=== PATIENT | female | born 1985 | race Caucasian/White ===

== ENCOUNTER → 2017-01-05 | Outpatient (CLI) | payer OTHER ==
[~2017-01-05] MED LIST: ADVIN50/60 INH; ALBU1.257 NEB; DIPH1TAB PO; EPP3/2 IM; MONT1TAB3 PO; OMAL150S INJ; PRLSR20 PO; SULF800T23 PO; VNTHFA/IN INH
[2017-01-09 00:48] LABS: CHLAMYDIA TRACH RNA*** NOT DETECTED (NOT DETECTED); GC (NEIS GONORRHOEAE)RNA** NOT DETECTED (NOT DETECTED)
== END | disposition home or self-care (01) ==
LOC: C.LABSPEC 17:02
PROVIDERS: ATTEND Obstetrics & Gynecology
DX: Z01.419 Encounter for gynecological examination (general) (routine) without abnormal findings (principal)

== ENCOUNTER → 2017-01-05 | Outpatient (CLI) | payer OTHER | END | disposition home or self-care (01) | LOC: C.PAPS 10:42 | PROVIDERS: ATTEND Obstetrics & Gynecology | DX: Z12.4 Encounter for screening for malignant neoplasm of cervix (principal) ==

== ENCOUNTER 2017-02-22 23:30 | Emergency (ER) | payer OTHER ==
[~2017-02-22] VITALS: Ht 170.2 cm; Wt 100.4 kg
[2017-02-22 23:40] VITALS: TEMP 36.8; Ht 170.2 cm; Wt 100.4 kg
[2017-02-23] MEDS ORDERED: ALBU1.257 NEB (00:15)
[2017-02-23] MEDS ORDERED: VNTHFA/IN INH (00:15)
[2017-02-23] MEDS ORDERED: EPP3/2 IM (00:15)
[2017-02-23] MEDS ORDERED: MONT1TAB3 PO (00:16)
[2017-02-23] MEDS ORDERED: DIPH1TAB PO (00:16)
[2017-02-23] MEDS ORDERED: ADVIN50/60 INH (00:16)
[2017-02-23] MEDS ORDERED: PRLSR20 PO (00:16)
[2017-02-23 00:33] LABS: BASO % 0.4 %; BASO ABS # 0.04 K/uL (0-0.2); COMPLETE YES; EOS % 4.5 %; HEMATOCRIT 43.1 % (37-47); IG% 0.3 %; LYMPH % 31.2 %; LYMPH ABS # 2.82 K/uL (1.2-3.4); MEAN CELL VOLUME 81.9 fL (80-100); MEAN CORPUSCULAR HEMOGLOBIN 28.9 pg (25-34); MEAN CORPUSCULAR HGB CONC 35.3 g/dl (32-36); MEAN PLATELET VOLUME 9.3 fL (7.4-10.4); MONO % 8.4 %; NEUT % 55.2 %; PLATELET COUNT 239 K/uL (130-400); RED BLOOD COUNT 5.26 M/uL (4.2-5.4); WHITE BLOOD COUNT 9.03 K/uL (4.8-10.8)
[2017-02-23 00:50] LABS: MANUAL MICROSCOPIC REQUIRED? NO; REVIEW REQ? YES; URINE APPEARANCE CLOUDY (CLEAR); URINE BILIRUBIN NEG (NEG); URINE COLOR YELLOW; URINE EPITHELIAL CELL AUTO >30 /lpf (0-5); URINE NITRITE NEG (NEG); URINE PH 5.5 (4.5-7.5); URINE SPECIFIC GRAVITY 1.028 (1.000-1.030); UROBILINOGEN NEG (NEG); ZZUR CULT IF INDIC CLEAN CATCH YES
[2017-02-23 00:53] LABS: BUN/CREATININE RATIO 19.2 (10-20); CALCIUM 9.2 mg/dl (8.5-10.1); CREATININE 0.85 mg/dl (0.60-1.20); POTASSIUM 3.6 mmol/L (3.5-5.1)
[2017-02-23 00:56] LABS: ALB/GLOB RATIO 1.2 (0.9-2)
[2017-02-23] MEDS ORDERED: KETOROLAC TROMETHAMINE 30 MG/ML VIAL IV STA (02:05)
[2017-02-23 04:57] VITALS: BP 141/69; PULSE 83; O2SAT 96
[2017-02-23] MEDS ORDERED: SULF800T23 PO (04:57)
[2017-02-23] MEDS ORDERED: SEPTRA DS HOME PACK 1 EA VIAL PO ONE (05:00)
--- NOTE | 2017-02-23 06:42 | DIAGNOSTIC IMAGING REPORT ---
(CHEST FOR PE) ANGIO WITH CT DOSE: 581.96 mGycm HISTORY: Chest pain dyspnea TECHNIQUE: Multiaxial CT images of the chest were performed following the intravenous administration of contrast to evaluate the pulmonary arteries. Maximal intensity projection images were also obtained. A dose lowering technique was utilized adhering to the principles of ALARA. COMPARISON STUDY: None. FINDINGS: There is a normal caliber thoracic aorta with no evidence for dissection. There is no evidence for pulmonary embolus. No pleural effusions. No pneumothorax. The liver and spleen are unremarkable. No mediastinal or hilar lymphadenopathy. The central airways are patent. The lungs are clear. IMPRESSION: No evidence for pulmonary embolus. The above report was generated using voice recognition software. It may contain grammatical, syntax or spelling errors. Electronically signed by: Prem Arnold M.D. 02/23/2017 6:41 AM Dictated Date/Time: 02/23/2017 6:39 AM
--- NOTE | 2017-02-23 06:49 | DIAGNOSTIC IMAGING REPORT ---
BILIARY ULTRASOUND CLINICAL HISTORY: RUQ abd pain COMPARISON STUDY: No previous studies for comparison. FINDINGS: The pancreas is nonvisualized. The liver is of increased echogenicity. No focal masses are visualized. The gallbladder appears sonographically normal. There is no ductal dilatation. The common bile duct measured 4 mm. There is no right-sided hydronephrosis. IMPRESSION: Ultrasonographically normal gallbladder. No evidence of ductal dilatation. Nondiagnostic evaluation of the pancreas. Electronically signed by: Sherman Bullock M.D. 02/23/2017 6:48 AM Dictated Date/Time: 02/23/2017 6:47 AM
--- NOTE | 2017-02-23 21:53 | EMERGENCY ROOM VISIT NOTE ---
History First contact with patient: 23:59 Chief Complaint: ABDOMINAL PAIN Stated Complaint: PAIN RLQ-SYL STABBIN PAIN Nursing Triage Summary: RUQ abdominal pain that radiates into flank that started Sunday. Denies nausea and vomiting. History of Present Illness The patient is a 31 year old female who presents to the Emergency Room with complaints of right upper quadrant abdominal pain that is radiating into her right side and back. The patient states the discomfort started about 2 days ago and is sharp in nature. It does not radiate to her groin or into her chest or upper back. She has not taken anything [id number] for her symptoms. She is without chest pain, chest tightness, shortness of breath, abdominal pain , or vaginal complaints. The patient is employed here at the facility and has not had symptoms like this in the past. She does not take blood thinners or have a history of cardiopulmonary disease. No past history of DVT or PE. The patient does not recall injury or trauma. Certain positions do worsen her discomfort. Food does not appear to change her discomfort. The patient rates her overall discomfort a 7/10. Review of Systems More than 10 systems were reviewed and otherwise negative with the exception of history of present illness. Past Medical/Surgical History No chronic medical disease Family History No pertinent family history Social History Smoking Status: Never Smoker Occupation Status: employed Current/Historical Medications Scheduled Fluticasone Prop/Salmeterol (Advair Diskus 500/50 60 Dose), 1 PUFF INH BID Montelukast Sodium (Singulair), 10 MG PO DAILY Omalizumab (Xolair), 150 MG INJ [id number] Omeprazole (Prilosec), 20 MG PO DAILY Sulfa/Trimethoprim (Bactrim Ds 800MG/160MG), 1 TAB PO BID Scheduled PRN Albuterol Hfa (Ventolin Hfa), 2 PUFFS INH Q6H PRN for SOB/Wheezing Albuterol Sulfate (Albuterol Sulfate), 1 VIAL NEB Q6 PRN for SOB/Wheezing Diphenhydramine Hcl (Benadryl Allergy), 25-50 MG PO UD PRN for ALLERGIC REACTION Epinephrine (Epipen), 0.3 MG IM UD PRN for ALLERGIC REACTION Physical Exam Vital Signs Date Time Temp Pulse Resp B/P (MAP) Pulse Ox O2 Delivery O2 Flow Rate FiO2 02/23/17 04:57 83 18 141/69 96 Room Air 02/23/17 03:05 71 18 120/71 98 Room Air 02/23/17 01:21 85 18 133/86 95 Room Air 02/22/17 23:40 36.8 95 20 137/94 100 Room Air Pain Rating (0-10): 1.0 Physical Exam VITALS: Vitals are noted on the nurse's note and reviewed by myself. Vital signs stable. GENERAL: Well-developed, well-nourished, white female, who is in no acute distress and resting comfortably. Patient is cooperative with the examination. NECK: Supple without nuchal rigidity. No lymphadenopathy. No thyromegaly. Cervical spine is nontender. HEART: Regular rate and rhythm without murmurs gallops or rubs. LUNGS: Clear to auscultation bilaterally without wheezes, rales or rhonchi. No retractions or accessory muscle use. ABDOMEN: Positive normal bowel sounds x 4. Soft with positive right upper quadrant tenderness anteriorly. Additionally there is some right lateral chest wall reproducible tenderness along the inferior right-sided ribs. No CVA tenderness. No lower abdominal tenderness. MUSCULOSKELETAL: No muscle atrophy, erythema, or edema noted. Full range of motion without joint tenderness in all extremities. Medical Decision & Procedures ER Provider Diagnostic Interpretation: BILIARY ULTRASOUND CLINICAL HISTORY: RUQ abd pain COMPARISON STUDY: No previous studies for comparison. FINDINGS: The pancreas is nonvisualized. The liver is of increased echogenicity. No focal masses are visualized. The gallbladder appears sonographically normal. There is no ductal dilatation. The common bile duct measured 4 mm. There is no right-sided hydronephrosis. IMPRESSION: Ultrasonographically normal gallbladder. No evidence of ductal dilatation. Nondiagnostic evaluation of the pancreas. (CHEST FOR PE) ANGIO WITH CT DOSE: 581.96 mGycm HISTORY: Chest pain dyspnea TECHNIQUE: Multiaxial CT images of the chest were performed following the intravenous administration of contrast to evaluate the pulmonary arteries. Maximal intensity projection images were also obtained. A dose lowering technique was utilized adhering to the principles of ALARA. COMPARISON STUDY: None. FINDINGS: There is a normal caliber thoracic aorta with no evidence for dissection. There is no evidence for pulmonary embolus. No pleural effusions. No pneumothorax. The liver and spleen are unremarkable. No mediastinal or hilar lymphadenopathy. The central airways are patent. The lungs are clear. IMPRESSION: No evidence for pulmonary embolus. Laboratory Results 02/23/17 00:15 Red Blood Count 5.26, Mean Corpuscular Volume 81.9, Mean Corpuscular Hemoglobin 28.9, Mean Corpuscular Hemoglobin Concent 35.3, Mean Platelet Volume 9.3, Neutrophils (%) (Auto) 55.2, Lymphocytes (%) (Auto) 31.2, Monocytes (%) (Auto) 8.4, Eosinophils (%) (Auto) 4.5, Basophils (%) (Auto) 0.4, Neutrophils # (Auto) 4.97, Lymphocytes # (Auto) 2.82, Monocytes # (Auto) 0.76, Eosinophils # (Auto) 0.41, Basophils # (Auto) 0.04 02/23/17 00:15 Test 02/23/17 00:05 02/23/17 00:15 Urine Color YELLOW Urine Appearance CLOUDY (CLEAR) Urine pH 5.5 (4.5-7.5) Urine Specific [place] 1.028 (1.000-1.030) Urine Protein NEG (NEG) Urine Glucose (UA) NEG (NEG) Urine Ketones NEG (NEG) Urine Occult Blood NEG (NEG) Urine Nitrite NEG (NEG) Urine Bilirubin NEG (NEG) Urine Urobilinogen NEG (NEG) Urine Leukocyte Esterase MODERATE (NEG) Urine WBC (Auto) >30 /hpf (0-5) Urine RBC (Auto) 0-4 /hpf (0-4) Urine Hyaline Casts (Auto) 1-5 /lpf (0-5) Urine Epithelial Cells (Auto) >30 /lpf (0-5) Urine Bacteria (Auto) 2+ (NEG) Urine Pathogenic Casts /lpf (0) Urine Test NEG (NEG) White Blood Count 9.03 K/uL (4.8-10.8) Red Blood Count 5.26 M/uL (4.2-5.4) Hemoglobin 15.2 g/dL (12.0-16.0) Hematocrit 43.1 % (37-47) Mean Corpuscular Volume 81.9 fL (80-100) Mean Corpuscular Hemoglobin 28.9 pg (25-34) Mean Corpuscular Hemoglobin Concent 35.3 g/dl (32-36) Platelet Count 239 K/uL (130-400) Mean Platelet Volume 9.3 fL (7.4-10.4) Neutrophils (%) (Auto) 55.2 % Lymphocytes (%) (Auto) 31.2 % Monocytes (%) (Auto) 8.4 % Eosinophils (%) (Auto) 4.5 % Basophils (%) (Auto) 0.4 % Neutrophils # (Auto) 4.97 K/uL (1.4-6.5) Lymphocytes # (Auto) 2.82 K/uL (1.2-3.4) Monocytes # (Auto) 0.76 K/uL (0.11-0.59) Eosinophils # (Auto) 0.41 K/uL (0-0.5) Basophils # (Auto) 0.04 K/uL (0-0.2) RDW Standard Deviation 39.3 fL (36.4-46.3) RDW Coefficient of Variation 13.0 % (11.5-14.5) Immature Granulocyte % (Auto) 0.3 % Immature Granulocyte # (Auto) 0.03 K/uL (0.00-0.02) Anion Gap 6.0 mmol/L (3-11) Est Creatinine Clear Calc Drug Dose 118.9 ml/min Estimated GFR () 107.3 Estimated GFR (Non- 92.6 BUN/Creatinine Ratio 19.2 (10-20) Calcium Level 9.2 mg/dl (8.5-10.1) Total Bilirubin 0.4 mg/dl (0.2-1) Aspartate Amino Transf (AST/SGOT) 18 U/L (15-37) Alanine Aminotransferase (ALT/SGPT) 39 U/L (12-78) Alkaline Phosphatase 78 U/L (45-117) Total Protein 7.6 gm/dl (6.4-8.2) Albumin 4.2 gm/dl (3.4-5.0) Globulin 3.4 gm/dl (2.5-4.0) Albumin/Globulin Ratio 1.2 (0.9-2) Lipase 184 U/L (73-393) Medications Administered Medications (Trade) Dose Ordered Sig/Jhonny Route Start Time Stop Time Status Last Admin Dose Admin Ketorolac Tromethamine (Toradol Inj) 30 mg NOW STAT IV 02/23/17 02:05 02/23/17 02:06 DC 8/18/17 02:10 30 MG Trimethoprim/ Sulfamethoxazole (Sulfameth/ Trimeth Ds 800/ 160MG Home Pack) [address] [facility]CE PO 02/23/17 05:00 02/23/17 05:01 DC 02/23/17 05:03 1 HOMEPACK ED Course Physical exam and history were performed. Nursing notes, EMR, and Medication List were personally reviewed. Patient appears to have vague right upper quadrant versus right sided flank pain versus central chest wall pain. On exam the patient does have some right upper quadrant and right chest wall pain that is reproducible. The patient does not appear toxic. IV access was established and labs were obtained. She was hydrated and medicated as above. I initially started with ultrasound and urinalysis. The patient's blood work is as above and was reviewed. She does not have a significantly elevated white blood cell count, gross anemia, bandemia, or significant electrolyte imbalance. Lipase and transaminases are nondiagnostic. Urinalysis is highly suggestive of infection with culture pending. Ultrasound of the right upper quadrant did not show acute findings. On reevaluation the patient continued to have discomfort, however it appears to be worse along the right-sided lower chest wall more so than any other location. I discussed options of care with the patient and elected to perform a CT scan of the chest as PE was a concern. CT of the chest did not show acute findings. Overall the patient had significant improvement after the IV Toradol. Her symptoms could certainly have a pleuritic nature to them, however she does have a urine consistent with infection. I suspect that she may have an early pyelonephritis and will give her a course of Bactrim. The patient was asked to follow with her primary care physician in the next few days for recheck. She is given a note for work and otherwise invited back to the ER with any new, worsening, or concerning symptoms. The chart was completed utilizing [employer] Speech Voice Recognition Software. Grammatical errors, random word insertions, pronoun errors, and incomplete sentences are an occasional consequence of this system due to software limitations, ambient noise, and hardware issues. Any formal questions or concerns about the content, text, or information contained within the body of this dictation should be directly addressed to the provider for clarification. . Medical Decision Differential diagnosis: Etiologies such as appendicitis, diverticulitis, PUD, biliary pathology, UTI, pancreatitis, obstruction, mesenteric ischemia, aortic pathology, infections, inflammatory bowel disease, renal colic, as well as others were entertained. Medication Reconcilliation Current Medication List: was personally reviewed by me Blood Pressure Screening Blood pressure disposition: Elevated BP felt to be situational Impression Primary Impression: Pyelonephritis Departure Information Dispostion Home / Self-Care Condition GOOD Prescriptions Sulfa/Trimethoprim (Bactrim Ds 800MG/160MG) Tab 1 TAB PO BID for 10 Days, #20 TAB Prov: Jose Alex PA-C 02/23/17 Forms HOME CARE DOCUMENTATION FORM, Work Instructions, Additional Instructions: Patient was seen and evaluated in the emergency department today fo medical care. Return to work on 02/24/2017. Please excuse. IMPORTANT VISIT INFORMATION Patient Instructions My [facility] Additional Instructions You were seen and evaluated today on an emergency basis only. This is not a substitute for, or an effort to provide, complete comprehensive medical care. It is not possible to recognize and treat all injuries or illnesses in a single emergency department visit. For this reason it is recommended that you followup with your primary care physician in the next 2-3 days for recheck of your condition. Trimethoprim-Sulfamethoxazole(Bactrim DS): Take one pill twice daily for 10 days for your kidney/urine infection. All antibiotics can cause diarrhea. If this occurs and you feel worse or it does not resolve in 1-2 days follow up with your doctor or return to the Emergency Department as this could be signs of serious underlying problems. Any medication can cause an allergic reaction, stop the pills immediately and return to the ER for rash, hives, breathing difficulties, or swelling. Drink clear fluids and remain well hydrated You are welcome to return to the emergency department anytime with new, worsening, or concerning symptoms. Work Instructions Additional Work Instructions: Patient was seen and evaluated in the emergency department today for medical care. Return to work on 02/24/2017. Please excuse.
[2017-04-20] MEDS ORDERED: OMAL150S INJ (00:19)
== END 2017-02-23 05:04 | disposition home or self-care (01) ==
LOC: C.EDB 23:31
DX: N12 Tubulo-interstitial nephritis, not specified as acute or chronic (principal); Z79.899 Other long term (current) drug therapy

== ENCOUNTER 2017-04-20 18:17 | Emergency (ER) | payer OTHER ==
[~2017-04-20] VITALS: Ht 170.2 cm; Wt 104.0 kg
[~2017-04-20 18:17] MED LIST changes: -SULF800T23 PO
[2017-04-20 18:24] VITALS: BP 133/84; PULSE 100; TEMP 37; O2SAT 98; Ht 170.2 cm; Wt 104.0 kg
[2017-04-20] MEDS ORDERED: RANI150T3 PO (18:37)
--- NOTE | 2017-04-20 19:04 | EMERGENCY ROOM VISIT NOTE ---
ED Visit Note First contact with patient: 18:28 CHIEF COMPLAINT: Needlestick HISTORY OF PRESENT ILLNESS: This 32-year-old, right-hand dominant, female patient presents to the emergency department complaining of a needle stick injury to her left index finger. The injury occurred approximately 2 hours prior to arrival. 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 She states she reached down to pear picker the dirty needle and it stuck through her glove and caused a very small puncture wound of the left index finger. The patient states Dr. Salmon is aware of the injury and is a dressing having the source patient tested and consented for HIV testing. The patient did immediately scrubbed and cleaned the wound. She denies any residual bleeding or drainage from the wound. The patient denies any pain. The patient does consent to baseline HIV testing. REVIEW OF SYSTEMS: A 6 system review of systems was performed with positives and pertinent negatives listed in the history of present illness. All other systems were reviewed and are negative. ALLERGIES: Please see list. MEDICATIONS: Please see list. I did personally review the patient's medication list with her at bedside. PMH: Asthma, GERD SOCIAL HISTORY: The patient lives locally with family. She denies drug, alcohol , tobacco use. PHYSICAL EXAM: VITALS: Vitals are noted on the nurse's note and reviewed by myself. Vital signs stable. GENERAL: This is a 32-year-old white female, in no acute distress, nondiaphoretic, well-developed well-nourished. SKIN: There is a very small, superficial puncture wound of the left index finger. There is no active bleeding at this time. The wound does not appear to have any drainage. There is no erythema or edema of the digit. Capillary refill less than 2 seconds. The patient does have full sensation and strength 5 /5 of the digit. EMERGENCY DEPARTMENT COURSE: She was seen and evaluated as above. I did call and leave a message with occupational health regarding the patient and incident. HIV testing consent obtained. All other place health paperwork was completed. Labs were drawn and discharge instructions reviewed. The patient was discharged home in good condition. DIFFERENTIAL DIAGNOSIS: Needlestick, HIV, hepatitis C, hepatitis B, puncture wound, workman's comp injury, and others DIAGNOSIS: Superficial needle stick of the left index finger Current/Historical Medications Scheduled Fluticasone Prop/Salmeterol (Advair Diskus 500/50 60 Dose), 1 PUFF INH BID Montelukast Sodium (Singulair), 10 MG PO DAILY Omalizumab (Xolair), 450 MG INJ [id number] Ranitidine Hcl (Zantac), 150 MG PO BID Scheduled PRN Albuterol Hfa (Ventolin Hfa), 2 PUFFS INH Q6H PRN for SOB/Wheezing Albuterol Sulfate (Albuterol Sulfate), 1 VIAL NEB Q6 PRN for SOB/Wheezing Diphenhydramine Hcl (Benadryl Allergy), 25-50 MG PO UD PRN for ALLERGIC REACTION Epinephrine (Epipen), 0.3 MG IM UD PRN for ALLERGIC REACTION Allergies Coded Allergies: Chicken Flavor (Verified Allergy, Severe, ANAPHYLAXIS, 02/23/17) Chicken Meat (Verified Allergy, Severe, ANAPHYLAXIS, 02/23/17) Chicken Skin (Verified Allergy, Severe, ANAPHYLAXIS, 02/23/17) Egg (Verified Allergy, Severe, ANAPHYLAXIS, 02/23/17) Latex1 -Allergic Contact Dermititis (Verified Allergy, Severe, RASH, ) Shellfish (Verified Allergy, Severe, GI SYMPTOMS, 02/23/17) Dust (Verified Allergy, Intermediate, SHORTNESS OF BREATH, 02/23/17) Molds and Smuts (Verified Allergy, Intermediate, SHORTNESS OF BREATH, 02/23) NUTS (Verified Allergy, Intermediate, GI SYMPTOMS, 02/23/17) Onion (Verified Allergy, Intermediate, GI SYMPTOMS, 02/23/17) Povidone Iodine (Verified Allergy, Intermediate, RASH, 02/23/17) Uncoded Allergies: VINYL (Allergy, Severe, RASH, 02/23/17) TURKEY (Allergy, Intermediate, GI SYMPTOMS, 02/23/17) Vital Signs Date Time Temp Pulse Resp B/P (MAP) Pulse Ox O2 Delivery O2 Flow Rate FiO2 04/20/17 18:24 37.0 100 18 133/84 98 Room Air Departure Information Impression Primary Impression: Needle stick injury of finger of left hand Dispostion Home / Self-Care Condition GOOD Referrals Paula Bhatia MD (PCP) Patient Instructions ED Wound Puncture General, [facility] Additional Instructions He was seen in the emergency department today for a needle stick injury. This was considered significant and labs were drawn. Please follow up with employee health for ongoing testing and follow-up regarding the injury. Proper wound care is essential for adequate wound healing and infection prevention. You can shower and clean the wound with soap and water. Do not scour over the wound, pat dry with a towel. Do not submerse the wound (i.e. bathe or dish wash) until the wound has fully healed. You can use an antibiotic ointment with a dressing over the wound for the next 3-4 days. After this time you may leave the wound dry and open to the air. Return to the emergency Department for any redness, swelling, puslike drainage, or other concerning symptoms. Follow-up with employee health on Sunday. Problem Qualifiers Primary Impression: Needle stick injury of finger of left hand Encounter type: initial encounter Qualified Codes: S61.239A - Puncture wound without foreign body of unspecified finger without damage to nail, initial encounter; W27.3XXA - Contact with needle (sewing), initial encounter
== END 2017-04-20 19:17 | disposition home or self-care (01) ==
LOC: C.EDB 18:19 → C.EDD 19:17
DX: T14.8XXA Other injury of unspecified body region, initial encounter (principal); W46.1XXA Contact with contaminated hypodermic needle, initial encounter; J45.909 Unspecified asthma, uncomplicated; K21.9 Gastro-esophageal reflux disease without esophagitis

== ENCOUNTER 2018-02-09 18:58 | Emergency (ER) | payer OTHER ==
[~2018-02-09] VITALS: Ht 170.2 cm; Wt 105.6 kg
[~2018-02-09 18:58] MED LIST changes: -DIPH1TAB PO; +DIPH1TAB87 PO; -PRLSR20 PO; +RANI150T3 PO
[2018-02-09 19:01] VITALS: TEMP 36.7; Ht 170.2 cm; Wt 105.6 kg
[2018-02-09] MEDS ORDERED: KETOROLAC TROMETHAMINE 60 MG/2 ML VIAL IM STA (19:15)
[2018-02-09] MEDS ORDERED: ALBUT/IPRATROP 3MG/0.5MG NEB 3 ML VIAL INH STA (19:15)
[2018-02-09] MEDS ORDERED: TIOT1AER2 INH (19:28)
[2018-02-09 19:55] VITALS: BP 155/106; PULSE 112; O2SAT 95
[2018-02-09] MEDS ORDERED: CYCL10TA6 PO (19:58)
--- NOTE | 2018-02-09 19:59 | DIAGNOSTIC IMAGING REPORT ---
TWO VIEW CHEST CLINICAL HISTORY: Dyspnea. FINDINGS: PA and lateral chest radiographs are correlated with chest CT dated 02/23/2017. The cardiomediastinal silhouette is unremarkable. The lungs and pleural spaces are clear. There is no pneumothorax. The bony thorax appears intact. IMPRESSION: No active disease in the chest. Electronically signed by: Nile Bravo M.D. 02/09/2018 7:58 PM Dictated Date/Time: 02/09/2018 7:57 PM
[2018-02-09] MEDS ORDERED: FLEXERIL HOME PACK 10 MG VIAL PO ONE (20:00)
--- NOTE | 2018-02-09 20:03 | EMERGENCY ROOM VISIT NOTE ---
History First contact with patient: 19:09 Chief Complaint: BACK PAIN Stated Complaint: LEFT UPPER BACK PAIN, STABBING-WC History of Present Illness The patient is a 32 year old female who presents to the Emergency Room with complaints of left upper back pain. The patient states that she works here at [employer] and was running back and forth from the ER to the floor and to the OR with Dr. Salmon earlier today and shortly afterwards at approximately 4 PM she started getting some pain in the left upper back which is worse with deep inspiration or with movement. She denies any known trauma to the area. The patient does have a history of asthma. She did not use her inhaler. She does admit to some increased shortness of breath when she feels the pain. She describes the pain as a stabbing pain. She rates it at a 7 out of 10. Patient denies any associated chest pain. The patient is a non-smoker. She took some ibuprofen and applied a heating pad with slight relief. She was instructed by her charge nurse to come to the emergency room for evaluation. Review of Systems 10 system review was performed and was negative unless stated otherwise history of present illness. Past Medical/Surgical History Asthma, eczema, GERD, pyelonephritis, kidney stones, multiple right arm surgeries, wisdom tooth removal Social History Smoking Status: Never Smoker Alcohol Use: occasionally Drug Use: none Occupation Status: employed Current/Historical Medications Scheduled Cyclobenzaprine Hcl (Flexeril), 10 MG PO Q8 Fluticasone Prop/Salmeterol (Advair Diskus 500/50 60 Dose), 1 PUFF INH BID Montelukast Sodium (Singulair), 10 MG PO DAILY Omalizumab (Xolair), 450 MG INJ [id number] Tiotropium [place] (Spiriva Respimat), 2 PUFF INH DAILY Scheduled PRN Albuterol Hfa (Ventolin Hfa), 2 PUFFS INH Q6H PRN for SOB/Wheezing Albuterol Sulfate (Albuterol Sulfate), 1 VIAL NEB Q6 PRN for SOB/Wheezing Diphenhydramine Hcl (Benadryl Allergy), 25-50 MG PO UD PRN for ALLERGIC REACTION Epinephrine (Epipen), 0.3 MG IM UD PRN for ALLERGIC REACTION Ranitidine Hcl (Zantac), 150 MG PO BID PRN for reflux Physical Exam Vital Signs Date Time Temp Pulse Resp B/P (MAP) Pulse Ox O2 Delivery O2 Flow Rate FiO2 02/09/18 19:55 112 18 155/106 95 Room Air 02/09/18 19:01 36.7 114 18 153/107 100 Room Air Physical Exam GENERAL: 32-year-old white female appears in no acute distress. MENTAL Status: Alert and oriented 3. The patient appears anxious. She is breathing rapidly. NECK: Supple, no lymphadenopathy noted. No carotid bruits noted. LUNGS: Clear auscultation without wheezes rales or rhonchi. CARDIAC: Tachycardic with a rate of 114 fall. Normal rhythm without murmur.. Pulses is full and equal throughout. Medical Decision & Procedures ER Provider Diagnostic Interpretation: TWO VIEW CHEST CLINICAL HISTORY: Dyspnea. FINDINGS: PA and lateral chest radiographs are correlated with chest CT dated 02/23/2017. The cardiomediastinal silhouette is unremarkable. The lungs and pleural spaces are clear. There is no pneumothorax. The bony thorax appears intact. IMPRESSION: No active disease in the chest. Electronically signed by: Nile Bravo M.D. 02/09/2018 7:58 PM Laboratory Results Test 02/09/18 19:36 Bedside D-Dimer 246 ng/mlFEU (0-450) Medications Administered Medications (Trade) Dose Ordered Sig/Jhonny Route Start Time Stop Time Status Last Admin Dose Admin Albuterol/ Ipratropium (Duoneb) 3 ml NOW STAT INH 02/09/18 19:15 02/09/18 19:17 DC 02/09/18 19:33 3 ML Ketorolac Tromethamine (Toradol Inj) 60 mg NOW STAT IM 02/09/18 19:15 02/09/18 19:17 DC 02/09/18 19:33 60 MG ED Course Patient was evaluated. Patient EMR medication list were reviewed. Chest x-ray was ordered interpreted by the radiologist and myself as above without any acute findings. [id number] d-dimer was 246 which is within normal range.. The patient was given a DuoNeb. The patient was also given Toradol 60 mg IM for pain. The patient was reevaluated was feeling better. The patient was given a Flexeril home pack. The patient was discharged in stable condition. Medical Decision Differential diagnosis include costochondritis, muscular strain, pleuritic chest pain, PE., Asthma exacerbation [place] Drug Monitoring Program Search Results: patient reviewed within database Blood Pressure Screening Patient's blood pressure: Elevated blood pressure Blood pressure disposition: Elevated BP felt to be situational Impression Primary Impression: Costochondritis, acute Departure Information Dispostion Home / Self-Care Condition GOOD Prescriptions Cyclobenzaprine Hcl (FLEXERIL) 10 Mg Tab 10 MG PO Q8 for Muscle Spasms, #20 TAB Prov: Julianne Arnold, JULISSA 02/09/18 Referrals No Doctor, Assigned (PCP) Forms HOME CARE DOCUMENTATION FORM, IMPORTANT VISIT INFORMATION Patient Instructions [facility] Additional Instructions Ibuprofen 600 mg every 6 hours with food for pain. Take Flexeril as directed. Do not drive while taking the Flexeril. May apply moist heat to the affected area intermittently over the next 24 hours. If symptoms persist or worsen, follow-up with your family doctor or return to ER.
== END 2018-02-09 20:03 | disposition home or self-care (01) ==
LOC: C.EDB 18:59 → C.EDD 20:03
DX: M94.0 Chondrocostal junction syndrome [Tietze] (principal); J45.909 Unspecified asthma, uncomplicated

== ENCOUNTER 2021-02-09 06:04 | Observation (INO) ==
--- NOTE | 2021-01-25 14:14 | PAT Medication Instructions ---
Medication Instructions Date of Service January 25, 2021 Home Medications Medication Instructions Recorded epinephrine 0.3 mg/0.3 mL 0.3 mg IM Q15M PRN #2 ea 02/13/19 injection, auto-injector albuterol 90 mcg/actuation aerosol inhaler 90 mcg INH UD PRN diphenhydramine HCl 25 mg tablet 25 mg PO DAILY PRN epinephrine 0.3 mg/0.3 mL injection, auto-injector 0.3 mg IM Q15M PRN omalizumab 75 mg/0.5 mL subcutaneous syringe (Xolair) 75 mg SUBCUT UD tiotropium bromide 1.25 mcg/actuation mist for inhalation (Spiriva Respimat) 2 puff INHALATION QAM fluticasone 500 mcg-salmeterol 50 mcg/dose blistr powdr for inhalation (Advair Diskus) 1 inh INHALATION BID omalizumab 150 mg subcutaneous solution 300 mg SUBCUT UD gabapentin 300 mg capsule 300 mg PO BID levocetirizine 5 mg tablet (Xyzal) 5 mg PO QAM lisdexamfetamine 70 mg capsule (Vyvanse) 70 mg PO QAM montelukast 10 mg tablet 10 mg PO QAM Continue as directed epinephrine 0.3 mg/0.3 mL injection, auto-injector 0.3 mg IM Q15M PRN (if needed) ASK your prescriber and surgeon omalizumab 75 mg/0.5 mL subcutaneous syringe (Xolair) 75 mg SUBCUT UD DO NOT take the morning of surgery diphenhydramine HCl 25 mg tablet 25 mg PO DAILY PRN levocetirizine 5 mg tablet (Xyzal) 5 mg PO QAM lisdexamfetamine 70 mg capsule (Vyvanse) 70 mg PO QAM montelukast 10 mg tablet 10 mg PO QAM Take morning of surgery With a small sip of water, OTHERWISE NOTHING TO EAT OR DRINK AFTER MIDNIGHT: albuterol 90 mcg/actuation aerosol inhaler 90 mcg INH UD PRN (use if needed; please bring rescue inhaler with you to hospital day of surgery if possible) fluticasone 500 mcg-salmeterol 50 mcg/dose blistr powdr for inhalation (Advair Diskus) 1 inh INHALATION BID gabapentin 300 mg capsule 300 mg PO BID Take evening before surgery albuterol 90 mcg/actuation aerosol inhaler 90 mcg INH UD PRN (if needed) diphenhydramine HCl 25 mg tablet 25 mg PO DAILY PRN (if needed) fluticasone 500 mcg-salmeterol 50 mcg/dose blistr powdr for inhalation (Advair Diskus) 1 inh INHALATION BID gabapentin 300 mg capsule 300 mg PO BID Other Notes If you have any questions please call us at [phone] or [phone] or [phone] or [phone]
--- NOTE | 2021-01-28 10:51 | Anesthesiology Consultation ---
Date of Service January 28, 2021 Assessment & Plan (1) Encounter for pre-operative examination: - COVID screening: Per assessment on 01/28: Travel screen negative, no known COVID-19 positive contacts or current COVID-19 related symptoms. Patient vaccinated. Surgeon arranging preop COVID testing. Awaiting results. - S/P Total lap hysterectomy, b/l salpingectomies, cystoscopy (12/31/20): Grade view 1, MAC#3, ETT 7.5 at [facility] - Left hand pain: Patient states residual pain after IV placement during 12/2020 [facility] surgery (?phlebitis). Requests avoidance of area of IV placement if possible. - Egg allergy: anaphylaxis reaction per patient Chart Review Chart Review: Acceptable Risk for Surgery and Patient seen in Pre Admission Testing Teaching & Discussion Pre-Anesthesia Teaching/Discussion Notes: Instructed NPO after midnight before surgery,except medications with 15 cc of water. Medication instructions provided according to the PAT guidelines. History Surgery Operation Date: 02/09/21 10:35 Proposed Procedures p C5-C6 Anterior Cervical Discectomy and Fusion, Spinal Cord Monitoring - Derek Carrillo, Height/Weight Height: 5 ft 7 in Weight: 99.7 kg Allergies Allergy/AdvReac Type Severity Reaction Status Date / Time chicken derived Allergy Severe Anaphylaxis Verified 01/24/21 16:49 egg Allergy Severe Anaphylaxis Verified 01/24/21 16:49 latex Allergy Severe Rash Verified 01/24/21 16:49 mold Allergy Intermediate Shortness Verified 01/24/21 16:49 of breath povidone-iodine Allergy Intermediate Rash Verified 01/24/21 16:49 adhesive Allergy Verified 01/24/21 16:49 iodine Allergy Unknown Verified 01/24/21 16:49 liraglutide [From Victoza] Allergy Hives Verified 01/24/21 16:49 milk Allergy Unknown Verified 01/24/21 16:49 nickel Allergy Rash Verified 01/24/21 16:49 rice Allergy Unknown Verified 01/24/21 16:49 Yeast Allergy Unknown Verified 01/24/21 16:49 shellfish derived AdvReac Severe GI symptoms Verified 01/24/21 16:49 nut - unspecified AdvReac Intermediate GI symptoms Verified 01/24/21 16:49 onion AdvReac Intermediate GI symptoms Verified 01/24/21 16:49 turkey AdvReac Intermediate Gastrointestinal Verified 01/24/21 16:49 Upset metformin AdvReac Diarrhea Verified 01/24/21 16:49 VINYL Allergy Severe Rash Uncoded 01/24/21 16:49 Medications Home Medications Medication Instructions Recorded Confirmed Last Taken albuterol 90 mcg/actuation aerosol 90 mcg INH UD PRN 02/06/19 01/24/21 12/30/20 08:00 inhaler diphenhydramine HCl 25 mg tablet 25 mg PO DAILY PRN tab 02/06/19 01/24/21 Unknown epinephrine 0.3 mg/0.3 mL 0.3 mg IM Q15M PRN #2 ea 02/13/19 01/24/21 Unknown injection, auto-injector omalizumab 75 mg/0.5 mL 75 mg SUBCUT UD 03/24/20 01/24/21 12/30/20 20:00 subcutaneous syringe (Xolair) tiotropium bromide 1.25 2 puff INHALATION QAM 03/24/20 01/24/21 12/31/20 07:44 mcg/actuation mist for inhalation (Spiriva Respimat) fluticasone 500 mcg-salmeterol 50 1 inh INHALATION BID 04/27/20 01/24/21 12/31/20 07:41 mcg/dose blistr powdr for inhalation (Advair Diskus) omalizumab 150 mg subcutaneous 300 mg SUBCUT UD ea 04/27/20 01/24/21 12/30/20 20:00 solution gabapentin 300 mg capsule 300 mg PO BID 12/20/20 01/24/21 12/30/20 08:00 levocetirizine 5 mg tablet (Xyzal) 5 mg PO QAM 12/24/20 01/24/21 12/30/20 20:00 lisdexamfetamine 70 mg capsule 70 mg PO QAM 12/24/20 01/24/21 12/29/20 20:00 (Vyvanse) montelukast 10 mg tablet 10 mg PO QAM 12/24/20 01/24/21 12/29/20 20:00 Past Medical History Medical History Anxiety Asthma GERD (gastroesophageal reflux disease) Diet controlled History of renal stone Migraines Obesity Previously on Metformin/Victoza for weight loss, no diabetes diagnosis (hgba1c 09/01/19 5.7%) OCD (obsessive compulsive disorder) Osteoarthritis 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 per PAT RN interview Spinal stenosis Exercise / Class Metabolic Activity II 4-5 Yardwork/Stairs/Walk up hill (one FS (no CP, no SOB)) Past Family History Family History Aunt Cancer Family/Other Breast cancer paternal side, distant Father Diabetes Mother Bipolar disorder Schizophrenia COPD (chronic obstructive pulmonary disease) Other No family history of adverse response to anesthesia Osteoporosis Denies family history of Ovarian cancer Colorectal cancer Past Surgical History Surgical History History of elbow surgery Rt x 3 S/P laparoscopic hysterectomy Total lap hysterectomy, b/l salpingectomies, cystoscopy (12/31/20): Grade view 1, MAC#3, ETT 7.5 at [facility] S/P wisdom tooth extraction Social History Smoking Status: Never smoker Do You Dip or Chew Tobacco: No Hx Alcohol Use: No (recovering alcoholic - quit 08/2019) Hx Substance Use: No substance use type: does not use Physical Exam Vital Signs VITALS BP 134/84 P 98 TEMP WNL SP02 100%RA RESP 16 PHYSICAL Full cervical extension range of motion. Full TMJ range of motion. TMD 3.5 finger breaths Mallampati Score 2 Dentition: missing molar Lungs: clear throughout to auscultation Cardiac: regular rate and rhythm, no murmurs noted Spine: normal Extremities: no edema Lab Results Anesthesia Preop Results Results Anesthesia Widget: WBC 6.87 K/uL (4.8-10.8) 12/20/20 Hgb 14.7 g/dL (12.0-16.0) 12/20/20 Hct 42.1 % (37-47) 12/20/20 Plt 213 K/uL (130-400) 12/20/20 Na 134 mmol/L (136-145) L 12/28/20 K 3.3 mmol/L (3.5-5.1) L 12/28/20 Cl 101 mmol/L (98-107) 12/28/20 CO2 27 mmol/L (21-32) 12/28/20 BUN 10 mg/dl (7-18) 12/28/20 Creat 0.49 mg/dl (0.6-1.2) L 12/28/20 Glucose Level 84 mg/dl (70-99) 12/28/20 PT 9.7 Seconds (9.0-12.0) 01/28/21 PTT 25.8 Seconds (21.0-31.0) 01/28/21 INR 1.0 (0.9-1.1) 01/28/21 Urine Color Yellow 01/28/21 Urine Appearance Clear (Clear) 01/28/21 Urine pH 5.5 (4.5-7.5) 01/28/21 Urine Specific [place] 1.014 (1.000-1.030) 01/28/21 Urine Protein Negative (Negative) 01/28/21 Urine Glucose (UA) Negative (Negative) 01/28/21 Urine Ketones Negative (Negative) 01/28/21 Urine Blood Negative (Negative) 01/28/21 Urine Nitrite Negative (Negative) 01/28/21 Urine Bilirubin Negative (Negative) 01/28/21 Urine Urobilinogen Negative (Negative) 01/28/21 Urine Leukocyte Esterase Negative (Negative) 01/28/21 Testing Electrocardiogram Date: 01/28/21 NSR at 88bpm. Low voltage QRS. Chest X-Ray Date: 01/28/21 Findings: + NAD
[~2021-02-09 06:04] MED LIST changes: +ACETAMINOPHEN 500 MG TAB PO SCH; -ADVIN50/60 INH; -ALBU1.257 NEB; +CeleBREX 200 MG CAP PO SCH; -DIPH1TAB87 PO; -EPP3/2 IM; +GABAPENTIN 900 MG DOSE PO SCH; +LR 15ML/HR IV SCH; -MONT1TAB3 PO; -OMAL150S INJ; -RANI150T3 PO; -VNTHFA/IN INH; +ceFAZolin 2000MG 2,000 MG/15 ML SYR IV SCH
[2021-02-09] MEDS ORDERED: MIDAZOLAM HCL 1 MG/ML 2ML VIAL ONE (06:55)
[2021-02-09] MEDS ORDERED: FAMOTIDINE/PF 20 MG/2 ML VIAL IV ONE (06:58)
[2021-02-09] MEDS ORDERED: SUGAMMADEX SODIUM 200 MG/2 ML VIAL IV ONE (06:58)
[2021-02-09] MEDS ORDERED: HYDROmorphone INJ 1 MG/ML SYRINGE IV PRN ×2 (07:02→15:04)
[2021-02-09] MEDS ORDERED: SCOPOLAMINE 1 MG TDSY TD STA (07:02)
[2021-02-09] MEDS ORDERED: fentaNYL citrate 100 MCG/2 ML VIAL IV PRN (07:02)
[2021-02-09] MEDS ORDERED: ONDANSETRON INJ 2 MG/ML 2 ML VIAL IV PRN ×2 (07:02→15:04)
[2021-02-09] MEDS ORDERED: PROMETHAZINE HCL 12.5 MG in SODIUM CHLORIDE 0.9% 50 ML IV PRN ×2 (07:02→15:04)
[2021-02-09] MEDS ORDERED: ATROPINE SULFATE 0.1 MG/ML 10ML SYR IV PRN (07:02)
[2021-02-09] MEDS ORDERED: ALBUT/IPRATROP 3MG/0.5MG NEB 3 ML VIAL ONE (07:02)
[2021-02-09] MEDS ORDERED: ePHEDrine sulfate 50 MG/ML AMP IV PRN (07:02)
[2021-02-09] MEDS ORDERED: ALBUT/IPRATROP 3MG/0.5MG NEB 3 ML VIAL INH PRN (07:04)
[2021-02-09] MEDS ORDERED: SCOPOLAMINE 1 MG TDSY TD ONE (07:11)
[2021-02-09] MEDS ORDERED: METOCLOPRAMIDE HCL INJ 5 MG/ML 2 ML VIAL ONE (07:12)
[2021-02-09] MEDS ORDERED: fentaNYL citrate 100 MCG/2 ML VIAL ONE ×2 (07:12)
[2021-02-09] MEDS ORDERED: LIDOCAINE 2% 2 ML VIAL/AMP(20MG/ML) INFIL ONE (07:13)
[2021-02-09] MEDS ORDERED: LARYING-O-JET KIT (LTA) ONE (07:13)
[2021-02-09] MEDS ORDERED: ETOMIDATE 2 MG/ML 20 ML VIAL IV ONE (07:13)
[2021-02-09] MEDS ORDERED: HYDROmorphone INJ 2 MG/ML SYR/VIAL ONE (07:15)
[2021-02-09] MEDS ORDERED: ROCURONIUM BROMIDE 10 MG/ML 5 ML VIAL IV ONE (07:15)
[2021-02-09] MEDS ORDERED: diphenhydrAMINE 50 MG/ML VIAL ONE (07:24)
[2021-02-09] MEDS ORDERED: DEXAMETHASONE SOD INJ 4 MG/ML VIAL ONE (07:24)
--- NOTE | 2021-02-09 07:27 | History & Physical Bridge Note ---
Date of Service February 09, 2021 History & Physical Bridge Note I have examined the patient, reviewed the History & Physical and in the interval since the performance of the History & Physical I have noted the following changes of clinical significance: no changes noted
--- NOTE | 2021-02-09 07:28 | History & Physical Report ---
Date of Service February 09, 2021 Assessment & Plan (1) Cervical radiculopathy: Plan: C5-C6 anterior cervical discectomy and fusion History of Present Illness Chief Complaint: Neck and arm pain Primary Care Provider: Anisa Valiente, Is a 35-year-old female presents with chronic persistent neck and arm pain after failing course of nonoperative care is here for surgical invention. Allergies Allergy/AdvReac Type Severity Reaction Status Date / Time chicken derived Allergy Severe Anaphylaxis Verified 02/09/21 06:34 egg Allergy Severe Anaphylaxis Verified 02/09/21 06:34 latex Allergy Severe Rash Verified 02/09/21 06:34 adhesive Allergy Intermediate Rash Verified 02/09/21 07:13 liraglutide [From Victoza] Allergy Intermediate Hives Verified 02/09/21 07:13 mold Allergy Intermediate Shortness Verified 02/09/21 06:34 of breath nickel Allergy Intermediate Rash Verified 02/09/21 07:13 povidone-iodine Allergy Intermediate Rash Verified 02/09/21 06:34 iodine Allergy Unknown Unknown Verified 02/09/21 07:13 milk Allergy Unknown Unknown Verified 02/09/21 07:13 rice Allergy Unknown Unknown Verified 02/09/21 07:13 Yeast Allergy Unknown Unknown Verified 02/09/21 07:13 shellfish derived AdvReac Severe GI symptoms Verified 02/09/21 06:34 nut - unspecified AdvReac Intermediate GI symptoms Verified 02/09/21 06:34 onion AdvReac Intermediate GI symptoms Verified 02/09/21 06:34 turkey AdvReac Intermediate Gastrointestinal Verified 02/09/21 06:34 Upset metformin AdvReac Mild Diarrhea Verified 02/09/21 07:13 Home Medications Medication Instructions Recorded Confirmed Type albuterol 90 mcg/actuation aerosol 90 mcg INH UD PRN 02/06/19 02/09/21 History inhaler diphenhydramine HCl 25 mg tablet 25 mg PO DAILY PRN tab 02/06/19 02/09/21 History epinephrine 0.3 mg/0.3 mL 0.3 mg IM Q15M PRN #2 ea 02/13/19 02/09/21 Rx injection, auto-injector omalizumab 75 mg/0.5 mL 75 mg SUBCUT UD 03/24/20 02/09/21 History subcutaneous syringe (Xolair) tiotropium bromide 1.25 2 puff INHALATION QAM 03/24/20 02/09/21 History mcg/actuation mist for inhalation (Spiriva Respimat) fluticasone 500 mcg-salmeterol 50 1 inh INHALATION BID 04/27/20 02/09/21 History mcg/dose blistr powdr for inhalation (Advair Diskus) omalizumab 150 mg subcutaneous 300 mg SUBCUT UD ea 04/27/20 02/09/21 History solution gabapentin 300 mg capsule 300 mg PO BID 12/20/20 02/09/21 History levocetirizine 5 mg tablet (Xyzal) 5 mg PO QAM 12/24/20 02/09/21 History lisdexamfetamine 70 mg capsule 70 mg PO QAM 12/24/20 02/09/21 History (Vyvanse) montelukast 10 mg tablet 10 mg PO QAM 12/24/20 02/09/21 History Past Med/Surg History Medical History Anxiety Asthma GERD (gastroesophageal reflux disease) Diet controlled History of renal stone Migraines Obesity Previously on Metformin/Victoza for weight loss, no diabetes diagnosis (hgba1c 09/01/19 5.7%) OCD (obsessive compulsive disorder) Osteoarthritis 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 per PAT RN interview Spinal stenosis Surgical History History of elbow surgery Rt x 3 S/P laparoscopic hysterectomy Total lap hysterectomy, b/l salpingectomies, cystoscopy (12/31/20): Grade view 1, MAC#3, ETT 7.5 at [facility] S/P wisdom tooth extraction Family History Aunt Cancer Family/Other Breast cancer paternal side, distant Father Diabetes Mother Bipolar disorder Schizophrenia COPD (chronic obstructive pulmonary disease) Other No family history of adverse response to anesthesia Osteoporosis Denies family history of Ovarian cancer Colorectal cancer Social History Smoking Status: Never smoker Second Hand Exposure: Yes (hx); Do You Dip or Chew Tobacco: No; Hx Alcohol Use: No (recovering alcoholic - quit 08/2019) Hx Substance Use: No Preferred Language: [place] Communication Ability: Effective Personal Care Worker Required: No Beliefs That Will Affect Care: None marital status: Single Current Living Situation: Alone current occupational status: employed Feels Safe at Home: Yes Safety Concerns: Feels Safe At This Time Assistive Devices: Glasses Physical Exam Physical Exam: Patient alert and oriented Heart regular rhythm Lungs clear to auscultation Results & Data ([facility]) Vital Signs (Past 12 Hours) Vital Signs Temp Pulse Resp BP Pulse Ox 02/09/21 07:07 82 18 98 02/09/21 06:18 36.8 C 85 18 129/90 99
[2021-02-09] MEDS ORDERED: EPINEPHrine INJ 1 MG/ML AMP ONE (07:32)
[2021-02-09] MEDS ORDERED: BUPIVACAINE 0.5 % 5 MG/1 ML MPF 30ML VIAL ONE (07:32)
[2021-02-09] MEDS ORDERED: ALBUTEROL HFA INHALER 8.5 GM ONE ×2 (08:29→08:31)
[2021-02-09] MEDS ORDERED: KETOROLAC 30 MG/ML VIAL ONE (08:54)
[2021-02-09] MEDS ORDERED: FLOSEAL HEMOSTATIC MATRIX 10ML TOP ONE (08:59)
--- NOTE | 2021-02-09 09:02 | Operative Report ---
Post Operative Report Pre & Post Diagnosis Operation Date: 02/09/21 07:45 Pre-Op Diagnosis: Cervical spinal stenosis with radiculopathy Post-Op Diagnosis: Same I identified the patient and participated in the time-out.: Yes Procedure Operation Date: 02/09/21 07:45 Actual Procedures #1 anterior cervical discectomy with bilateral foraminotomies C5-C6. #2 anterior cervical arthrodesis C5-C6. #3 placement of globus coalition cage 9 mm in height filled with I factor C5-C6. Surgeon Derek Carrillo, DO Hydrometeorological Technician Valerie Manzo Estimated Blood Loss 10 Findings See Below The patient is 5 foot 7 inches tall weighing over 9 kg with a BMI in excess of 34. The patient's body habitus did create increased technical difficulty and at least 25% increase to the operative time. Specimens None Indications This is a 35-year-old female presents above-mentioned diagnosis after failing extensive course of nonoperative care is here for the above-mentioned procedure. Description of Procedure Patient was met with identified informed consent obtained. Patient was then taken to the operative suite underwent ablation placed in spine position Tj table at [place] head insulation board saw operator. All bony prominences well-padded eyes inspected to ensure no external pressure placed upon the. This point the anterior cervical spine was prepped and draped in a sterile fashion. With assistance of fluoroscopy identified the C5-C6 disc base and a transverse incision was placed along the right anterior aspect of the cervical spine overlying this region. Sharp dissection with the assistance of bipolar electrocautery was performed down to and exposing the anterior cervical spine from C5-C6. Several 10 retractors placed. Then performed complete discectomy of C5-C6 out to the uncovertebral joints bilaterally. [place] distracting pins utilized to assist in visualization. Removed all posterior annular fibers longitudinal ligament bilateral foraminotomies performed. Endplates were then burred to subcortical bleeding bone and a 9 mm coalition cage filled with I factor tapped in position and screwed into place with_fluoroscopic visualization. Incision was then copiously irrigated explored to ensure no damage to surrounding structures remaining bleeding. 10 round LORI drain inserted. It was then closed with 2 Vicryl the fascia 4 Monocryl for final closure. Steri-Strip sterile dressings placed. Patient will continue PACU stable condition. Please note spinal cord monitoring was utilized at the procedure no changes noted. Lastly Valerie Manzo was present at the entire surgeon on the patient positioning complex portions of the surgery and final skin closure. I attest to the content of the Intraoperative Record and any orders documented therein. Any exceptions are noted below.
--- NOTE | 2021-02-09 09:46 | Fluoroscopy Report ---
FL cervical 2-3V CLINICAL HISTORY: C5-C6 ACDF COMPARISON STUDY: MRI of the cervical spine August 18, 2020. FLUOROSCOPY TIME: 10 seconds. FLUOROSCOPIC IMAGES: 2 FINDINGS: Fluoroscopy was provided during C5-C6 anterior discectomy and fusion. Sponge marker shown o n initial image at 8:58 AM was not present on the second image obtained at 9:07 AM. Endotracheal tube is partially imaged. Cervical drain is in place. IMPRESSION: Fluoroscopy provided during C5-C6 anterior discectomy and fusion. ACT 112: Negative or not required by law. Electronically signed by: Chuckie Land M.D. 02/09/2021 9:44 AM
--- NOTE | 2021-02-09 14:47 | Anesthesiology Progress Note ---
Date of Service February 09, 2021 Anesthesia Post Procedure Vital Signs Vital Signs: Temp Pulse Pulse Resp BP BP Pulse Ox 02/09/21 14:30 91 H 18 131/73 96 02/09/21 14:00 98 H 18 139/77 96 02/09/21 13:45 96 H 18 143/81 H 95 02/09/21 13:30 104 H 18 129/80 96 02/09/21 13:15 93 H 18 137/66 96 02/09/21 13:00 97 H 18 114/88 96 02/09/21 12:45 91 H 18 124/75 96 02/09/21 12:30 98 H 18 124/74 95 02/09/21 12:15 97 H 18 129/77 96 02/09/21 12:00 93 H 18 134/70 93 02/09/21 11:45 99 H 18 112/83 95 02/09/21 11:30 91 H 18 121/64 94 02/09/21 11:15 89 18 107/82 94 02/09/21 11:00 87 18 127/90 94 02/09/21 10:45 80 18 91/79 L 97 02/09/21 10:30 36.7 C 81 20 115/80 97 02/09/21 10:25 81 18 110/73 98 02/09/21 10:15 73 16 109/83 96 02/09/21 10:05 74 13 121/80 96 02/09/21 09:55 83 20 131/84 97 02/09/21 09:45 80 12 134/73 97 02/09/21 09:35 75 14 121/79 95 02/09/21 09:25 75 12 130/77 98 02/09/21 09:19 36.1 C L 87 13 128/86 100 02/09/21 07:07 82 18 98 02/09/21 06:18 36.8 C 85 18 129/90 99 Pain Intensity Upper Back: Pain Intensity: 2 Neck: Pain Intensity: 3 Transfer of Care Handoff Completed per policy Notes Mental Status: alert / awake / arousable and participated in evaluation Patient Amnestic to Procedure: Yes Nausea / Vomiting: adequately controlled Pain: adequately controlled Airway Patency, RR, SpO2: stable & adequate BP & HR: stable & adequate Hydration State: stable & adequate Anesthetic Complications: no major complications apparent and Pt Satisfied with anesthetic care
[2021-02-09] MEDS ORDERED: LORazepam 0.5 MG TAB PO PRN (15:04)
[2021-02-09] MEDS ORDERED: LORazepam 0.5 MG/1 ML VIAL IV PRN (15:04)
[2021-02-09] MEDS ORDERED: HYDROmorphone INJ 0.5 MG/0.5 ML SYR IV PRN (15:04)
[2021-02-09] MEDS ORDERED: ALUMINUM/MAGNESIUM SUSP 30 ML UDC PO PRN (15:04)
[2021-02-09] MEDS ORDERED: diphenhydrAMINE Capsule 25 MG CAP PO PRN ×2 (15:04→15:30)
[2021-02-09] MEDS ORDERED: MAGNESIUM HYDROXIDE SUSP 30 ML UDC PO PRN (15:04)
[2021-02-09] MEDS ORDERED: FAMOTIDINE 20 MG TAB PO PRN (15:04)
[2021-02-09] MEDS ORDERED: ACETAMINOPHEN 1,000 MG/100 ML VIAL IV PRN (15:04)
[2021-02-09] MEDS ORDERED: hydrOXYzine HCl 25 MG TAB PO PRN (15:04)
[2021-02-09] MEDS ORDERED: traMADol HCL 50 MG TABLET PO PRN (15:04)
[2021-02-09] MEDS ORDERED: bisacodyL 10 MG SUPP PR PRN (15:04)
[2021-02-09] MEDS ORDERED: NALOXONE HCL 0.4 MG/1 ML VIAL/CARP IV PRN (15:04)
[2021-02-09] MEDS ORDERED: METOCLOPRAMIDE HCL INJ 5 MG/ML 2 ML VIAL IV PRN (15:04)
[2021-02-09] MEDS ORDERED: ONDANSETRON 4 MG OD TAB PO PRN (15:04)
[2021-02-09] MEDS ORDERED: DO NOT ADMINISTER FLU VACCINE PRN (15:04)
[2021-02-09] MEDS ORDERED: dexAMETHasone 8 MG in SYRINGE 0 ML IV PRN (15:04)
[2021-02-09] MEDS ORDERED: RACEPINEPHRINE 2.25% NEBU SOLN 0.5 ML VIAL INH PRN (15:04)
[2021-02-09] MEDS ORDERED: SOD PHOSPHATE/SOD BIPHOSPHATE ENEMA 132 ML BTL PR PRN (15:04)
[2021-02-09] MEDS ORDERED: ACETAMINOPHEN 500 MG TAB PO PRN (15:04)
[2021-02-09] MEDS ORDERED: DO NOT ADMINISTER PNEUMOCOCCAL VACCINE PRN (15:04)
[2021-02-09] MEDS ORDERED: ALBUTEROL HFA 8 GM INHALER INH PRN (15:20)
[2021-02-09] MEDS ORDERED: traMADol HCL 50 MG TABLET ONE (15:24)
[2021-02-09] MEDS ORDERED: EPINEPHrine INJ 1 MG/ML AMP IM PRN (15:33)
--- NOTE | 2021-02-09 17:58 | Hospitalist Consultation ---
Date of Consultation February 09, 2021 Assessment & Plan (1) Cervical radiculopathy: (2) Spinal stenosis: - Pain management, bowel regimen and DVT ppx per the primary team - PT/OT consults - Follow am CBC to monitor for acute blood loss, CBC from 12/20 showed Hgb = 14.7, HCT = 42.1 (3) Obesity: - BMI of 34.5, diet and exercise to be encouraged throughout hospital stay (4) Asthma: -Continue albuterol inhaler as needed, Advair HFA, montelukast 10 mg daily, Spiriva 2 puffs daily, continue Xolair subq 375 mg q 2 weeks ( due this Sunday, 02/11. Has medication at home and can bring it in if she will still be admitted at that time). (5) GERD (gastroesophageal reflux disease): -Continue diet control (6) Recovering alcoholic: -Continue Vyvanse 70 mg daily (7) Migraines: -Continue Xyzal 5 mg daily, and gabapentin (8) Anxiety: -Continue gabapentin 300 mg twice daily DVT PPx: - kristyn ibarra CODE: Full code Dispo: From home, likely to remain in the hospital x 1-2 days Thank you for involving us in the care of Ms. Washington. If you have any questions or concerns please do not hesitate to call. At this time medicine will follow along. Supervising Physician Co-Signing Physician Notes Patient seen and examined by me. History notable for 35-year-old female with PMHx of asthma, obesity with BMI of 34.5, anxiety, migraines, recovering alcoholic, OCD, GERD, osteoarthritis and spinal stenosis who presents for C5-C6 anterior cervical discectomy and fusion by Dr. Carrillo today. Physical exam notable for neck collar with drain in situ at surgical site -Cervical spinal stenosis with radiculopathy Status post #1 anterior cervical discectomy with bilateral foraminotomies C5-C6. #2 anterior cervical arthrodesis C5-C6. #3 placement of globus coalition cage 9 mm in height filled with I factor C5-C6. Check CBC and BMP in the morning Pain management per Ortho Eventual PT/OT Continue albuterol as needed, Advair, montelukast and patient's other home asthma regimen Continue Xyzal and gabapentin Agree with other plans as documented by Tamica Pineda PA-C History of Present Illness Reason for Consultation: Medical management Requesting Physician: Dr. Carrillo Attending Physician: Derek Carrillo, DO History of Present Illness This is a 35-year-old female with PMHx of asthma, obesity with BMI of 34.5, anxiety, migraines, recovering alcoholic, OCD, GERD, osteoarthritis and spinal stenosis who presents for C5-C6 anterior cervical discectomy and fusion by Dr. Carrillo on 02/09/2021. She recently underwent total hysterectomy on December 31 this year. She presented for surgery due to right arm numbness and tingling which has been present since July 2020. 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 and therefore proceeded with surgery after extensive nonsurgical management. She reports doing well so far. No pain. No right arm numbness or tingling at this point. She reports a slight sore throat and right upper lip is swollen, but is improving status post surgery, she thinks this is from intubation. She denies any issues with swallowing and has tolerated a liquid diet. Her last bowel movement was last evening. Her father is present at bedside visiting her during my exam. When asked about her hx of asthma and medications, pt has been "lifelong asthmatic". She takes omalizumab for asthma every 2 weeks. Last dose was on January 28, so would be due this Sunday for her next injection. She has this medication at home in her refrigerator and could bring it in if needed. Allergies Allergy/AdvReac Type Severity Reaction Status Date / Time chicken derived Allergy Severe Anaphylaxis Verified 02/09/21 06:34 egg Allergy Severe Anaphylaxis Verified 02/09/21 06:34 latex Allergy Severe Rash Verified 02/09/21 06:34 adhesive Allergy Intermediate Rash Verified 02/09/21 07:13 liraglutide [From Victoza] Allergy Intermediate Hives Verified 02/09/21 07:13 mold Allergy Intermediate Shortness Verified 02/09/21 06:34 of breath nickel Allergy Intermediate Rash Verified 02/09/21 07:13 povidone-iodine Allergy Intermediate Rash Verified 02/09/21 06:34 iodine Allergy Unknown Unknown Verified 02/09/21 07:13 milk Allergy Unknown Unknown Verified 02/09/21 07:13 rice Allergy Unknown Unknown Verified 02/09/21 07:13 Yeast Allergy Unknown Unknown Verified 02/09/21 07:13 shellfish derived AdvReac Severe GI symptoms Verified 02/09/21 06:34 nut - unspecified AdvReac Intermediate GI symptoms Verified 02/09/21 06:34 onion AdvReac Intermediate GI symptoms Verified 02/09/21 06:34 turkey AdvReac Intermediate Gastrointestinal Verified 02/09/21 06:34 Upset metformin AdvReac Mild Diarrhea Verified 02/09/21 07:13 Home Medications Medication Instructions Recorded Confirmed Type albuterol 90 mcg/actuation aerosol 90 mcg INH UD PRN 02/06/19 02/09/21 History inhaler diphenhydramine HCl 25 mg tablet 25 mg PO DAILY PRN tab 02/06/19 02/09/21 History epinephrine 0.3 mg/0.3 mL 0.3 mg IM Q15M PRN #2 ea 02/13/19 02/09/21 Rx injection, auto-injector omalizumab 75 mg/0.5 mL 75 mg SUBCUT UD 03/24/20 02/09/21 History subcutaneous syringe (Xolair) tiotropium bromide 1.25 2 puff INHALATION QAM 03/24/20 02/09/21 History mcg/actuation mist for inhalation (Spiriva Respimat) fluticasone 500 mcg-salmeterol 50 1 inh INHALATION BID 04/27/20 02/09/21 History mcg/dose blistr powdr for inhalation (Advair Diskus) omalizumab 150 mg subcutaneous 300 mg SUBCUT UD ea 04/27/20 02/09/21 History solution gabapentin 300 mg capsule 300 mg PO BID 12/20/20 02/09/21 History levocetirizine 5 mg tablet (Xyzal) 5 mg PO QAM 12/24/20 02/09/21 History lisdexamfetamine 70 mg capsule 70 mg PO QAM 12/24/20 02/09/21 History (Vyvanse) montelukast 10 mg tablet 10 mg PO QAM 12/24/20 02/09/21 History oxycodone 5 mg tablet 5 mg PO Q6H PRN #20 tab 02/09/21 Rx tramadol 50 mg tablet 50 mg PO Q6H PRN #20 tab 02/09/21 Rx Patient History Medical History (Updated 02/09/21 @ 17:50 by Tamica Pineda PA-C) Anxiety Asthma GERD (gastroesophageal reflux disease) Diet controlled History of renal stone Migraines Obesity Previously on Metformin/Victoza for weight loss, no diabetes diagnosis (hgba1c 09/01/19 5.7%) OCD (obsessive compulsive disorder) Osteoarthritis 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 per PAT RN interview Spinal stenosis Surgical History History of elbow surgery Rt x 3 S/P laparoscopic hysterectomy Total lap hysterectomy, b/l salpingectomies, cystoscopy (12/31/20): Grade view 1, MAC#3, ETT 7.5 at [facility] S/P wisdom tooth extraction Family History Aunt Cancer Family/Other Breast cancer paternal side, distant Father Diabetes Mother Bipolar disorder Schizophrenia COPD (chronic obstructive pulmonary disease) Other No family history of adverse response to anesthesia Osteoporosis Denies family history of Ovarian cancer Colorectal cancer Social History Smoking Status: Never smoker Second Hand Exposure: Yes (hx); Do You Dip or Chew Tobacco: No; Hx Alcohol Use: No (recovering alcoholic - quit 08/2019) Hx Substance Use: No Preferred Language: Slovenian Communication Ability: Effective Automatic Mold Sander Required: No Beliefs That Will Affect Care: None marital status: Single Current Living Situation: Alone current occupational status: employed Feels Safe at Home: Yes Safety Concerns: Feels Safe At This Time Assistive Devices: Glasses Review of Systems Review of Systems: Constitutional: No fever, sweats or chills Eyes: No diplopia, no worsening or blurred vision ENT: normal hearing, no trouble swallowing Respiratory: No cough, sputum, dyspnea at rest or on exertion, as per HPI regarding asthma. Cardiovascular: No chest pain, tightness or palpitations Abdomen: No pain, nausea, vomiting, diarrhea or constipation Musculoskeletal: No joint pain, calf pain, swelling Neurologic: No weakness, numbness/tingling, or balance problems Psychiatric: No anxiety or depression Skin: No rash or itch Physical Exam Physical Exam: General: awake, alert, no apparent distress, obese with BMI of 34.5 Head: Normocephalic, atraumatic ENT: PERRL, EOMI, no pharyngeal exudate, mucous membranes moist, Neck: neck brace in place, anterior drain in place, dressing c/d/i. Chest: Clear to auscultation, on room air, no adventitious breath sounds Cardiac: Regular rate and rhythm, no murmur, no JVD, normal peripheral pulses, good capillary refill Abdominal: NABS x 4 quadrants, soft, nondistended, nontender to palpation, no rebound or guarding Extremities: Normal inspection, no peripheral edema or erythema, calfs nontender to palpation Psych: Normal mood and affect Neuro: AAO x 3, strength intact bilaterally and rated 5/5, no motor deficits, speech is clear, no peripheral sensory deficits Results & Data Results & Data ([facility]) Vital Signs (Past 12 Hours) Vital Signs Temp Pulse Pulse Resp BP BP Pulse Ox 02/09/21 17:20 84 16 120/73 95 02/09/21 15:30 99 H 18 107/71 95 02/09/21 15:00 97 H 18 107/76 95 02/09/21 14:30 91 H 18 131/73 96 02/09/21 14:00 98 H 18 139/77 96 02/09/21 13:45 96 H 18 143/81 H 95 02/09/21 13:30 104 H 18 129/80 96 02/09/21 13:15 93 H 18 137/66 96 02/09/21 13:00 97 H 18 114/88 96 02/09/21 12:45 91 H 18 124/75 96 02/09/21 12:30 98 H 18 124/74 95 02/09/21 12:15 97 H 18 129/77 96 02/09/21 12:00 93 H 18 134/70 93 02/09/21 11:45 99 H 18 112/83 95 02/09/21 11:30 91 H 18 121/64 94 02/09/21 11:15 89 18 107/82 94 02/09/21 11:00 87 18 127/90 94 02/09/21 10:45 80 18 91/79 L 97 02/09/21 10:30 36.7 C 81 20 115/80 97 02/09/21 10:25 81 18 110/73 98 02/09/21 10:15 73 16 109/83 96 02/09/21 10:05 74 13 121/80 96 02/09/21 09:55 83 20 131/84 97 02/09/21 09:45 80 12 134/73 97 02/09/21 09:35 75 14 121/79 95 02/09/21 09:25 75 12 130/77 98 02/09/21 09:19 36.1 C L 87 13 128/86 100 02/09/21 07:07 82 18 98 02/09/21 06:18 36.8 C 85 18 129/90 99 (1) Obesity Body mass index: BMI 37.0-37.9
[2021-02-09] MEDS: ceFAZolin 2000MG 2,000 MG/15 ML SYR IV SCH (18:33)
[2021-02-09] MEDS: LACTATED RINGER'S 1,000 ML IV SCH ×2 (18:35→20:00)
[2021-02-09] MEDS: CHECK SCOPOLAMINE PATCH PLACEMENT SCH (18:36)
[2021-02-09] MEDS: GABAPENTIN 300 MG CAP PO SCH (20:01)
[2021-02-09] MEDS ORDERED: ALBUT/IPRATROP 3MG/0.5MG NEB 3 ML VIAL NEB PRN (20:36)
[2021-02-09] MEDS ORDERED: DOCUSATE SODIUM/SENNA 50/8.6MG TAB PO SCH (21:00)
[2021-02-09] MEDS: oxyCODONE HCL IR 5 MG TAB (IMMEDIATE RELEASE) PO PRN (21:28)
[2021-02-10] MEDS: CHECK SCOPOLAMINE PATCH PLACEMENT SCH ×2 (01:04→07:33)
[2021-02-10] MEDS: ceFAZolin 2000MG 2,000 MG/15 ML SYR IV SCH (01:04)
[2021-02-10] MEDS: POLYETHYLENE (MIRALAX) 17 GM PACK PO SCH ×2 (05:29→11:20)
[2021-02-10 06:26] LABS: Hematocrit (blood only) 36.4 % (37-47); Hemoglobin 12.3 g/dL (12.0-16.0); Mean Corpuscular Hemoglobin 28.7 pg (25-34); Mean Corpuscular Hgb Conc 33.8 g/dL (32-36); Mean Platelet Volume 9.2 fL (7.4-10.4); Platelet Count 178 K/uL (130-400); RDW Coefficient of Variation 13.2 % (11.5-14.5); RDW Standard Deviation 40.3 fL (36.4-46.3); Red Blood Count 4.28 M/uL (4.2-5.4)
[2021-02-10 07:06] LABS: BUN Creatinine Ratio 9.4 (10-20); Calcium 8.3 mg/dl (8.5-10.1); Creatinine Clr Calc Pharmacy 167.5 ml/min; Est GFR (African American) 140.4 ml/min; Est GFR (Non-African American) 121.1 ml/min; Potassium 3.4 mmol/L (3.5-5.1)
[2021-02-10] MEDS: GABAPENTIN 300 MG CAP PO SCH (07:36)
[2021-02-10] MEDS: oxyCODONE HCL IR 5 MG TAB (IMMEDIATE RELEASE) PO PRN ×2 (07:40→13:10)
--- NOTE | 2021-02-10 08:09 | Discharge Summary ---
Date of Service February 10, 2021 Admission HPI Per Admitting Provider Is a 35-year-old female presents with chronic persistent neck and arm pain after failing course of nonoperative care is here for surgical invention. Principal Diagnosis Cervical spinal stenosis with radiculopathy Discharge Data Allergies Allergy/AdvReac Type Severity Reaction Status Date / Time chicken derived Allergy Severe Anaphylaxis Verified 02/09/21 06:34 egg Allergy Severe Anaphylaxis Verified 02/09/21 06:34 latex Allergy Severe Rash Verified 02/09/21 06:34 adhesive Allergy Intermediate Rash Verified 02/09/21 07:13 liraglutide [From Victoza] Allergy Intermediate Hives Verified 02/09/21 07:13 mold Allergy Intermediate Shortness Verified 02/09/21 06:34 of breath nickel Allergy Intermediate Rash Verified 02/09/21 07:13 povidone-iodine Allergy Intermediate Rash Verified 02/09/21 06:34 iodine Allergy Unknown Unknown Verified 02/09/21 07:13 milk Allergy Unknown Unknown Verified 02/09/21 07:13 rice Allergy Unknown Unknown Verified 02/09/21 07:13 Yeast Allergy Unknown Unknown Verified 02/09/21 07:13 shellfish derived AdvReac Severe GI symptoms Verified 02/09/21 06:34 nut - unspecified AdvReac Intermediate GI symptoms Verified 02/09/21 06:34 onion AdvReac Intermediate GI symptoms Verified 02/09/21 06:34 turkey AdvReac Intermediate Gastrointestinal Verified 02/09/21 06:34 Upset metformin AdvReac Mild Diarrhea Verified 02/09/21 07:13 Consultations 02/09/21 15:04 Consult Hospitalist Routine Procedures Performed Operation Date: 02/09/21 07:45 Actual Procedures p C5-C6 Anterior Cervical Discectomy and Fusion, Spinal Cord Monitoring(Not Applicable) - Derek Carrillo DO Ordered Studies 02/09/21 07:45 FL cervical 2-3V Routine Hospital Course (1) Spinal stenosis: Patient 1 anterior cervical discectomy fusion tolerated this well was taken to orthopedic for postop labor postop day #1 swallowing well no hoarseness arm symptoms markedly improved. Excellent strength testing. LORI drain decreasing probably. Subsequent discharge home. Discharge orders instructions from the chart for further review. Total Time Total Time Spent Total Time Spent (In Minutes): 20 minutes Discharge Plan Discharge Items Patient Disposition: Home - Self-Care Reason For Visit: Spinal Stenosis, Cervical Region Discharge Diagnosis: Cervical radiculopathy Activity: As commented below Non-emergency contact: Primary Care Provider Call non-emergency contact if: you have any medication questions Follow-up/Referrals: Anisa Valiente DO [Primary Care Provider] - Diet: Regular Addtl Attending Provider Instructions: ACTIVITY RECOMMENDATIONS: SELF CARE INSTRUCTIONS AFTER CERVICAL FUSIONS 1. No smoking. Smoking drastically decreases the chance of a solid fusion. 2. No bending, lifting more than 5 pounds, or twisting (roll like a log when turning in bed). 3. You may shower 3 days after surgery. Thoroughly dry wound. Do not soak in the tub. 4. Cervical collar: Must be worn at all times including sleeping. You may remove the brace only to bath, eat and if you are sitting in a recliner. 5. Please walk as much as you can for exercise. Gradually increase the distance that you walk as your endurance increases. SPECIAL CARE INSTRUCTIONS: VERY IMPORTANT TO READ AND REVIEW A. Do not take any anti-inflammatory medications (i.e. Indocin, Advil, Aspirin, Naprosyn, Aleve, Motrin, etc.) as these may inhibit the chance of a solid fusion. Tylenol is okay to take. B. Your surgical incision has been closed with a cosmetic suture under the skin that will dissolve in about 6 weeks. In 14 days, you can use a pair of clean scissors and cut the suture that is left outside of the skin at the ends of your incision. C. Complications are uncommon, but please contact us if you have any signs or symptoms of: 1. wound infection (fever higher than 102.5 degrees F, redness, separation of wound, drainage, or increasing pain from the incision) 2. blood clots in legs (pain, swelling, redness and warmth in legs) 3. urinary tract infection (fever higher than 102.5 degrees, burning upon urination or increased frequency of urination) 4. nerve problems (inability to walk on your toes or heels, numbness, loss of bowel or bladder control) 5. any other symptoms that concern you. D. Please call the office at if you have any concerns or questions about your operation or recovery. MANAGING PAIN AFTER SPINAL SURGERY 1. Narcotic medication is intended for short-term use and will be provided for surgical pain. Surgical pain usually lasts for a period of 4-6 weeks. Narcotic medication includes Percocet, Vicodin, Darvocet, Tylenol #3 or Lortab. 2. Longer-term pain is more appropriately treated with non-narcotic medication such as Tylenol ES. 3. Muscle spasm is not appropriately treated with narcotics. Muscle relaxers such as Soma, Flexeril or Skelaxin can be used along with Tylenol ES. 4. Remember that we all live with some "aches and pains". This is not unusual or uncommon after an injury or as we get older. 5. We will provide appropriate medication within the normal guidelines of their prescribed use. We will also be very cautious and aware of potential abuse and extended duration of patients' medication needs. 6. Please allow 2-3 days to process refills. Prescriptions will not be mailed but must be picked up at the office. FOLLOW UP VISIT: Keep your scheduled follow-up appointment. Any questions, please call the office at . Pending Studies at Discharge: No Stand-Alone Forms: [facility], Smoking Cessation Medications and DC Order Prescriptions: New tramadol 50 mg tablet 50 mg PO Q6H PRN (Reason: pain, moderate) Qty: 20 RF: 0 oxycodone 5 mg tablet 5 mg PO Q6H PRN (Reason: pain, severe) Qty: 20 RF: 0 Continued fluticasone propion-salmeterol [Advair Diskus] 500-50 mcg/dose blister with device 1 inh inhalation BID RF: 0 Spiriva Respimat 1.25 mcg/actuation mist 2 puff inhalation QAM RF: 0 Xolair 75 mg/0.5 mL syringe 75 mg subcut UD RF: 0 diphenhydramine HCl 25 mg tablet 25 mg PO DAILY PRN (Reason: Allergy Symptoms) RF: 0 albuterol 90 mcg/actuation aerosol 90 mcg INH UD PRN (Reason: sob) RF: 0 omalizumab 150 mg recon soln 300 mg subcut UD RF: 0 epinephrine 0.3 mg/0.3 mL auto-injector 0.3 mg IM Q15M PRN (Reason: anaphylaxis) Qty: 2 RF: 0 gabapentin 300 mg capsule 300 mg PO BID RF: 0 Vyvanse 70 mg Capsule 70 mg PO QAM RF: 0 montelukast 10 mg tablet 10 mg PO QAM RF: 0 levocetirizine [Xyzal] 5 mg tablet 5 mg PO QAM RF: 0 Discharge Orders: Discharge Order (Routine); Ordered 02/10/21 Ordered By: Derek Carrillo Admission Data Admit Date/Time: 02/09/21 09:06 Attending Provider: Derek Carrillo Admit Provider: Derek Carrillo Primary Care Provider: Anisa Valiente Other Providers: Flores Brennan ; Rebecca Stroud I.
[2021-02-10] MEDS ORDERED: FLUTICASONE/VILANTEROL 200/25MCG 14 PUFFS/INHALER INH SCH (09:00)
[2021-02-10] MEDS ORDERED: CETIRIZINE HCL 10 MG TABLET PO SCH (09:00)
[2021-02-10] MEDS ORDERED: MONTELUKAST SODIUM 10 MG TABLET PO SCH (09:00)
[2021-02-10] MEDS ORDERED: UMECLIDINIUM BROMIDE 62.5MCG/BLISTER 7 PUFFS/INHALER INH SCH (09:00)
--- NOTE | 2021-02-10 09:08 | Hospitalist Progress Note ---
Date of Service February 10, 2021 Assessment & Plan (1) Cervical radiculopathy: (2) Spinal stenosis: Plan: Cervical spinal stenosis with radiculopathy Status post #1 anterior cervical discectomy with bilateral foraminotomies C5-C6. #2 anterior cervical arthrodesis C5-C6. #3 placement of globus coalition cage 9 mm in height filled with I factor C5-C6. Postop day 1 Pain controlled Labs reviewed this morning. Hemoglobin stable. Medically okay for discharge (3) Obesity: Plan: BMI of 34.5 Lifestyle modification prudent diet and exercise (4) Asthma: Plan: Continue albuterol inhaler as needed, Advair HFA, montelukast 10 mg daily, Spiriva 2 puffs daily, continue Xolair subq 375 mg q 2 weeks ( due this Sunday, 02/11. Has medication at home and can bring it in if she will still be admitted at that time). (5) GERD (gastroesophageal reflux disease): (6) Migraines: Plan: -Continue Xyzal 5 mg daily, and gabapentin (7) Anxiety: Plan: -Continue gabapentin 300 mg twice daily Admission and Anticipated Discharge Date Admission Date: February 09, 2021 Subjective 35-year-old female with PMHx of asthma, obesity with BMI of 34.5, anxiety, migraines, recovering alcoholic, OCD, GERD, osteoarthritis and spinal stenosis who presents for C5-C6 anterior cervical discectomy and fusion by Dr. Carrillo Patient seen and examined. Reports some mild sore throat mild pain at surgical site. No nausea, vomiting or abdominal pain. Yet to move her bowels. Review of Systems Constitutional: no fever, no body aches and no fatigue Eyes: no problem reported Ear, Nose, Mouth, Throat: + sore throat Respiratory: no cough and no dyspnea Gastrointestinal: no abdominal pain, no nausea and no vomiting Genitourinary: no dysuria, no urinary frequency and no urinary incontinence Musculoskeletal: Pain at surgical site Neurologic: no dizziness and no headache(s) Psychiatric: no depression and no anxiety Physical Exam Constitutional: + well hydrated; no acute distress Eyes: PERRL, conjunctivae normal, anicteric sclerae ENMT: external ear and nose normal, oropharynx normal Neck: Clean dressing at surgical site with drain in situ [very minimal serosanguineous drainage] Respiratory: normal respiratory effort, lungs clear to auscultation Cardiovascular: RRR, no murmur, no edema Gastrointestinal (Abdomen): normal bowel sounds, soft, nontender, no hepatosplenomegaly Musculoskeletal: no cyanosis or clubbing, extremities motor strength 5/5 Neurologic: PERRL, EOMI, accommodation nl, no face palsy, no dysarthria Psychiatric: A+Ox3, euthymic affect Results & Data Results & Data ([facility]) Vital Signs (Past 12 Hours) Vital Signs Temp Pulse Resp BP Pulse Ox 02/10/21 08:15 36.6 C 60 16 115/74 97 02/10/21 07:30 78 16 97 02/10/21 05:34 36.5 C 58 L 16 120/75 97 02/10/21 03:34 36.6 C 68 16 137/64 98 02/10/21 03:00 80 16 92 02/10/21 01:28 36.6 C 62 16 119/72 98 02/09/21 23:34 36.6 C 86 16 149/77 H 98 02/09/21 22:55 88 16 95 02/09/21 21:34 36.6 C 96 H 16 126/68 98 02/09/21 21:18 89 16 02/09/21 21:15 89 16 97 Laboratory Results Abnormal lab results 02/10/21 02/10/21 Range/Units 06:08 06:08 Hct 36.4 L (37-47) % Potassium 3.4 L (3.5-5.1) mmol/L Chloride 108 H (98-107) mmol/L BUN 6 L (7-18) mg/dl Creatinine 0.58 L (0.6-1.2) mg/dl BUN/Creatinine Ratio 9.4 L (10-20) Glucose 139 H (70-99) mg/dl Calcium 8.3 L (8.5-10.1) mg/dl (1) Obesity Body mass index: BMI 37.0-37.9
== END 2021-02-10 13:30 | disposition home or self-care (01) | DRG 473 ==
LOC: ASU 06:04 → INTOOBSV 09:06 → PACUINP 09:06 → 3E 16:31